=== PATIENT | female | born 1965 | race African-American/Black ===

== ENCOUNTER → 2016-12-17 | Day surgery (SDC) | payer MEDICARE, OTHER ==
[~2016-12-17] MED LIST: ASPI-630 PO; BRIN10DR EACHEYE; CETI10CA PO; DEXL60CA2 PO; FENO48TA16 PO; FLUT16SP NS; HYDR-2758 PO; INSU100V SQ; INSU100V8 SQ; IV RINGERS,LACTATED 1000ML 1,000 ML IV SCH; LEVO100T5 PO; LEVO25TA4 PO; LEVO5TAB2 PO; LIDOCAINE 1% 1 ML SYRINGE. ID PRN; LIDOCAINE 2% PF Vial for OR 5 ML VIAL. ONE; MECL25TA3 PO; METO25TA9 PO; NITR0.4T22 SL; ORPH100T PO; PROCHLORPERAZINE 10 MG/2 ML VIAL. IV PRN; PROM6.25 PO; PROPOFOL 20 ML IV ONE; SIMV40TA3 PO; SUCR1TAB PO; TRAV5DRO EACHEYE; VALS40TA2 PO; VENTOLIN HFA18 GM INH
[2016-12-17 11:34] VITALS: BP 179/79
== END | disposition home or self-care (01) ==
LOC: ENDOS 09:20
PROVIDERS: ATTEND Internal Medicine Gastroenterology
DX: K21.0 Gastro-esophageal reflux disease with esophagitis (principal); E78.00 Pure hypercholesterolemia, unspecified; I10 Essential (primary) hypertension; J44.9 Chronic obstructive pulmonary disease, unspecified; E03.9 Hypothyroidism, unspecified; D64.9 Anemia, unspecified; Z86.69 Personal history of other diseases of the nervous system and sense organs; Z90.49 Acquired absence of other specified parts of digestive tract; Z87.39 Personal history of other diseases of the musculoskeletal system and connective tissue; Z86.39 Personal history of other endocrine, nutritional and metabolic disease; Z86.73 Personal history of transient ischemic attack (TIA), and cerebral infarction without residual deficits; Z88.1 Allergy status to other antibiotic agents; Z91.041 Radiographic dye allergy status; Z88.2 Allergy status to sulfonamides; Z91.048 Other nonmedicinal substance allergy status
CPT/HCPCS: 43239; 43450; 88305; 88342; J2704; J2001